=== PATIENT | female | born 1935 | race Caucasian/White ===

== ENCOUNTER → 2017-05-03 | Outpatient (CLI) | payer OTHER ==
[~2017-05-03] MED LIST: ACETYLSALICYLIC1 POW PO; BENAZEPRIL10 MG PO; COL100 PO; DILTIAZEM PO; FLUOROMETHOLONE5 ML OP; FLUOXETINE10 MG PO; GLIPIZIDE2.5 M1 PO; LAC PO; LEVAQUIN250 MG PO; MECLIZINE12.5 MG PO; METFORMIN HCL1000 MG PO; METFORMIN500 MG PO; MOTRIN400 MG PO; NAPROXEN550 MG PO; NEU100 PO; PROMETHAZINE PO; TOBRAMYCIN AND D5 ML OP; ULT50 PO
== END | disposition home or self-care (01) ==
LOC: LB 13:13
DX: M54.5 Low back pain (principal); E11.9 Type 2 diabetes mellitus without complications

== ENCOUNTER 2017-12-15 03:36 | Inpatient (IN) | payer OTHER ==
[~2017-12-15] VITALS: Ht 165.1 cm; Wt 78.9 kg
[2017-12-15 04:00] VITALS: Ht 165.1 cm; Wt 78.9 kg
[2017-12-15 05:31] LABS: BASOPHIL % 0.4 % (0-2); PLATELET COUNT 208 x10^3mcL (130-400); RED CELL DISTRIBUTION WIDTH 13.8 % (11.5-14.5)
[2017-12-15 05:42] LABS: CALCIUM 8.6 mg/dL (8.5-10.1); CARBON DIOXIDE 27.2 mmol/L (21-32); CHLORIDE SERUM 101 mmol/L (98-107); CREATININE SERUM 0.8 mg/dL (0.6-1.0); GLUCOSE SERUM 240 mg/dL (74-106); POTASSIUM SERUM 3.9 mmol/L (3.5-5.1); SODIUM SERUM 135 mmol/L (136-145)
[2017-12-15 05:54] LABS: ALBUMIN 3.7 g/dL (3.4-5.0); ALKALINE PHOSPHATASE 92 U/L (46-116); ALT/SGPT 22 U/L (14-59); AST/SGOT 20 U/L (15-37); BILIRUBIN TOTAL 0.4 mg/dL (0.20-1.00); LIPASE 109 IU/L (73-393); TOTAL PROTEIN, SERUM 7.5 g/dL (6.4-8.2)
[2017-12-15 06:43] LABS: microscopic required? NO
[2017-12-15 06:50] LABS: urine erythrocyte NEGATIVE (NEGATIVE)
[2017-12-15 09:22] VITALS: BP 124/59
[2017-12-15 09:53] LABS: T3 TOTAL 1.08 ng/mL
[2017-12-15 10:05] LABS: CHOLESTEROL/HDL RATIO 3.5; MAGNESIUM 1.6 mg/dL (1.8-2.4)
[2017-12-15 10:24] LABS: AMPHETAMINE QUAL UR NONE DETECTED (See below)
[2017-12-15 10:30] LABS: FREE T4 1.01 ng/dL (0.76-1.46); FREE THYROXINE INDEX 2.6 ug/dL (1.4-4.5); T4(THYROXINE) 8.3 ug/dL (4.7-13.3)
[2017-12-15 13:39] VITALS: BP 112/49
[2017-12-15 18:09] VITALS: BP 118/64
[2017-12-15 18:36] VITALS: BP 118/64
[2017-12-15 20:46] VITALS: BP 109/54
[2017-12-16 05:42] VITALS: BP 125/63
[2017-12-16 07:44] LABS: BASOPHIL % 0.6 % (0-2); PLATELET COUNT 186 x10^3mcL (130-400); RED CELL DISTRIBUTION WIDTH 13.5 % (11.5-14.5)
[2017-12-16 07:51] LABS: CALCIUM 9.1 mg/dL (8.5-10.1); CHLORIDE SERUM 106 mmol/L (98-107); CREATININE SERUM 0.6 mg/dL (0.6-1.0); GLUCOSE SERUM 164 mg/dL (74-106); PHOSPHOROUS 3.1 mg/dL (2.5-4.9); POTASSIUM SERUM 4.5 mmol/L (3.5-5.1); SODIUM SERUM 139 mmol/L (136-145)
[2017-12-16 09:08] VITALS: BP 133/62
[2017-12-16 14:41] VITALS: BP 123/61
[2017-12-16] MEDS ORDERED: AUG500 PO (18:42)
[2017-12-16] MEDS ORDERED: MUCINEX600 MG PO (18:43)
[2017-12-16 19:21] VITALS: BP 116/66
== END 2017-12-16 20:00 | disposition home or self-care (01) | DRG 189 ==
LOC: ED 03:36 → DU 06:49
PROVIDERS: Emergency Medicine; Family Medicine
DX: J96.00 Acute respiratory failure, unspecified whether with hypoxia or hypercapnia (principal); J06.9 Acute upper respiratory infection, unspecified; I45.81 Long QT syndrome; I10 Essential (primary) hypertension; E11.65 Type 2 diabetes mellitus with hyperglycemia; E83.42 Hypomagnesemia; M81.0 Age-related osteoporosis without current pathological fracture; M19.90 Unspecified osteoarthritis, unspecified site; N32.81 Overactive bladder; Z68.31 Body mass index [BMI] 31.0-31.9, adult; Z86.73 Personal history of transient ischemic attack (TIA), and cerebral infarction without residual deficits
CPT/HCPCS: 82962; 83880; 84439; 85378; 94150; C9113; J0696; J7030; J7620; Q0092; Q0162